=== PATIENT | female | born 1980 | race Caucasian/White ===

== ENCOUNTER 2019-09-01 00:31 | Inpatient (IN) | payer BC, OTHER ==
[2019-09-01] MEDS ORDERED: Lactated Ringers 1000 ML Bag* 1,000 ML IV ONE (01:29)
[2019-09-01] MEDS ORDERED: Buffered Lidocaine 1% SYRIN* 1 ML/SYRINGE INTRADERM ONE (01:29)
[2019-09-01] MEDS ORDERED: Glycerin ADULT SUPP PR PRN (01:30)
[2019-09-01] MEDS ORDERED: Witch Hazel PAD* JAR TOPICAL PRN (01:30)
[2019-09-01] MEDS ORDERED: Dibucaine 1% 28.35 GM TUBE PR PRN (01:30)
[2019-09-01] MEDS ORDERED: Acetaminophen TAB* 325 MG PO PRN (01:30)
[2019-09-01] MEDS ORDERED: OXYTOCIN* 10 UNITS/ML 1 ML VIAL IM ONE (01:30)
--- NOTE | 2019-09-01 01:37 | HP ---
General Information - Reason for Visit 39yo, , IUP@39+5 arrived in active labor - General Information Maternal Age: 39 Grav: 6 Para: 1 SAB: 4 IEA: 0 Estimated Due Date: 09/03/19 Determined By: Early Ultrasound Maternal Blood Type and Rh: O Positive - Results this Serology/RPR Result: Non-Reactive Rubella Result: Immune HBsAg Result: Negative HIV Result: Negative GBS Culture Result: Negative Past Medical History Delivery History: Hx Uncomplicated Vaginal Delivery Past Medical History Comment: Depression/anxiety eczema migraine Pertinent Past Surgical History: None Family History Comment: Mom: MS Son: sacral dimple, normal work-up PGM: stroke PGF: stroke MGM: [place] MGF: d/t surgery - Antepartal Records Antepartal Records: Reviewed, Complicated by: - AMA, anemia Review of Systems Constitutional: Uncomfortable CV Complaint: No Respiratory: Shortness of Breath: No Gastrointestinal: No Nausea/Vomiting Genitourinary: Leaking Fluid, No Dysuria, No Bleeding Musculoskeletal: Contractions Neurological: No Headache, No Visual Changes Movement: Normal Exam Allergies/Adverse Reactions: Allergies Penicillins Allergy (Verified 09/01/19 01:07) Hives tetanus and diphtheria toxoids [From [facility]VAX] Allergy (Verified 09/01/19 01:07) Anaphylatic Shock Tetanus Vaccines and Toxoid Allergy (Verified 09/01/19 01:07) Anaphylatic Shock - Measurements Height: 5 ft 8 in Weight: 137 lb Weight in lbs: [phone] Body Mass Index (BMI): 20.8 Pre- Weight: 120 lb Weight Gained This : 17 lbs and 0 ozs - Exam Breast: Breast Exam Deferred CVA: No CVA Tenderness Extremities: No Edema Heart: Normal Rhythm/Heart Sounds HEENT: No Significant Findings Lungs: Clear Bilaterally Rectal: Rectal Exam Deferred - Abdominal Exam Abdomen Exam: Non-Tender - Ultrasound/Biophysical Profile Ultrasound Status: Not Done Targeted Exam Findings Estimated Weight: 7lb Cervical Exam: Complete Effacement: 100% Station: +3 Presenting Part: Vertex Membrane Status: SROM Amniotic Fluid Evaluation: Gross Rupture EFM Findings - External Monitor Findings Baseline Heart Rate: 130 External Monitor Findings Comment: precip delivery Contractions: Regular, 45-90 Seconds Assessment/Plan - Assessment 39yo, , IUP@39+5 Active labor GBS negative complicated by AMA, anemia complete/complete pt feeling the need to push - Plan Plan: Admit - Anticipate Vaginal Delivery Plan Comment: Admit to L&D anticipate - Date/Time of Admission Date of Admission: 09/01/19 Time of Admission: 00:33
--- NOTE | 2019-09-01 01:44 | PROCNOTE ---
[facility] OB: Delivery Note - Delivery A Date of : 09/01/19 Time of : 00:45 [place] Sex: Female Weight at : 6 lb 13 oz Score 1 Minute: 9 Score 5 Minutes: 9 Gestational Age in Weeks and Days at Delivery: 39 Weeks and 5 Days Delivery Method: Spontaneous Vaginal Labor: Spontaneous Amniotic Fluid: Clear Estimated Blood Loss: 300 Anesthesia/Analgesia: None Delivered By: Maribell Vick - Nursery Level of Nursery: Regular/Bedside - Perineum Perineal Injury: 1st Degree Perineal Repair: By Delivering Practioner - Events Delivery Events of Note: Pitocin Only After Delivery, Precipitous Delivery - Additional Delivery Notes Additional Delivery Notes: Precipitous, normal spontaneous vertex delivery of live female, 6lbs, 13 ounces and Apgars 9/9. Delivered left occipital-anterior (GERALD), no nuchal cord. Body delivered without difficulty. Baby placed on mothers abdomen. Cord clamped and cut by FOB after pulsations ceased. Placenta delivered spontaneously via nascimento , appears intact, 3vc. Pitocin, 10mg given IM. Perineum and vagina inspected - first degree perineal laceration noted. Repaired in the usual fashion, anatomy restored, laceration hemostatic. EBL 300mL. Baby . Following , pt with elevated BP, PEC labs WNL, treatment not indicated. Pt has since been normotensive. Pt and baby stable at time of note.
[2019-09-01] MEDS ORDERED: Lactated Ringers 1000 ML Bag* 1,000 ML IV SCH ×2 (02:00)
[2019-09-01 03:16] LABS: ABS Basophils 0.1 10^3/ul (0-0.2); ABS Lymphocytes 1.8 10^3/ul (1.0-4.8); ABS Monocytes 0.9 10^3/ul (0-0.8); Eosinophil % 0.2 %; Hematocrit 31 % (35-47); Hemoglobin 10.6 g/dL (12.0-16.0); Mean Corpuscular HGB Conc 34 g/dL (31-36); Mean Corpuscular Hemoglobin 29 pg (27-31); Mean Corpuscular Volume 84 fL (80-97); Mean Platelet Volume 9.2 fL (7.4-10.4); Platelet Count 241 10^3/uL (150-450); Red Blood Count 3.72 10^6 /uL (3.70-4.87); Red Cell Distribution Width 13 % (10-15); White Blood Count 17.7 10^3/uL (3.5-10.8)
[2019-09-01 03:34] LABS: Albumin 3.1 g/dL (3.2-5.2); BUN/Creatinine Ratio 17.8 (8-20); Calcium 8.9 mg/dL (8.6-10.3); EGFR African American 107.4 (>60); EGFR Non-African American 88.8 (>60); Globulin 3.1 g/dL (2-4); Potassium 4.3 mmol/L (3.5-5.0); Total Bilirubin 0.2 mg/dL (0.2-1.0); Total Protein 6.2 g/dL (6.4-8.9); Uric Acid 6.1 mg/dL (2.3-6.6)
[2019-09-01] MEDS ORDERED: Lidocaine 1% INJ* 10 MG/ML 30 ML SDV ONE (04:13)
[2019-09-01] MEDS: Ibuprofen TAB* 600 MG PO SCH ×3 (08:26→18:49)
[2019-09-01] MEDS: Docusate CAP* 100 MG PO SCH ×3 (08:26→21:33)
[2019-09-01] MEDS ORDERED: Simethicone TAB* 80 MG TAB.CHEW PO SCH (08:30)
[2019-09-02] MEDS: Ibuprofen TAB* 600 MG PO SCH ×3 (02:17→15:07)
[2019-09-02 07:40] LABS: Hematocrit 31 % (35-47); Hemoglobin 10.4 g/dL (12.0-16.0); Mean Corpuscular HGB Conc 33 g/dL (31-36); Mean Corpuscular Hemoglobin 28 pg (27-31); Mean Corpuscular Volume 85 fL (80-97); Mean Platelet Volume 8.7 fL (7.4-10.4); Platelet Count 225 10^3/uL (150-450); Red Blood Count 3.66 10^6 /uL (3.70-4.87); Red Cell Distribution Width 13 % (10-15); White Blood Count 10.8 10^3/uL (3.5-10.8)
[2019-09-02 07:46] LABS: ABS Basophils 0.1 10^3/ul (0-0.2); ABS Eosinophils 0.1 10^3/ul (0-0.6); ABS Lymphocytes 2.9 10^3/ul (1.0-4.8); ABS Monocytes 0.8 10^3/ul (0-0.8); Eosinophil % 1.3 %; Lymphocyte % 26.7 %; Nucleated Red Blood Cells % 0.1
[2019-09-02] MEDS ORDERED: Ferrous Gluconate TAB* 324 MG TAB PO SCH (09:00)
[2019-09-02] MEDS: Docusate CAP* 100 MG PO SCH ×2 (09:03→16:36)
[2019-09-03 07:54] VITALS: BP 138/86
[2019-09-03] MEDS: Ibuprofen TAB* 600 MG PO SCH (07:59)
== END 2019-09-03 15:00 | disposition home or self-care (01) | DRG 560 ==
LOC: MCHOBOUT 00:31 → MCHOB 00:43
PROVIDERS: ADMIT Advanced Practice Midwife; ATTEND Advanced Practice Midwife
PROC: 10E0XZZ Delivery of Products of Conception, External Approach (ICD-10-PCS; principal; 2019-09-01)
PROC: 0HQ9XZZ Repair Perineum Skin, External Approach (ICD-10-PCS; 2019-09-01)
DX: O99.344 Other mental disorders complicating childbirth (principal); Z37.0 Single live birth; F41.8 Other specified anxiety disorders; O99.02 Anemia complicating childbirth; D64.9 Anemia, unspecified; O70.0 First degree perineal laceration during delivery; O62.3 Precipitate labor; Z3A.39 39 weeks gestation of pregnancy
CPT/HCPCS: 36415; 80053; 84550; 85025; A9270-GY; J2590